=== PATIENT | female | born 2000 | race Caucasian/White ===

== ENCOUNTER 2020-04-05 10:42 | Emergency (ER) | payer OTHER ==
[2020-04-05 10:50] VITALS: BP 113/51; PULSE 67; TEMP 98.2; BMI 24.7
== END 2020-04-05 11:36 | disposition home or self-care (01) ==
LOC: JERFT 10:42
DX: M25.532 Pain in left wrist (principal)
CPT/HCPCS: 73110-TC-LT-FY; 99283-25